=== PATIENT | female | born 2000 | race African-American/Black ===

== ENCOUNTER 2023-08-29 11:18 | Emergency (ER) | payer OTHER ==
--- NOTE | 2023-08-29 12:43 | XRAY Report ---
PROCEDURE: Chest 1 View X-Ray INDICATIONS: productive cough TECHNIQUE: One view of the chest was acquired. COMPARISON: None. FINDINGS: Surgical changes and devices: None. Lungs and pleura: No pleural effusions or pneumothorax. Lungs are clear. Mediastinum: Mediastinal contours appear normal. Heart size is normal. Bones and chest wall: No suspicious bony lesions. Overlying soft tissues appear unremarkable. IMPRESSION: No acute cardiopulmonary process. Reviewed by: David Smith MD on 08/29/2023 12:42 PM [facility] Approved by: David Smith MD on 08/29/2023 12:42 PM [facility] Station ID: [id number]
--- NOTE | 2023-08-29 12:51 | ED Physician Documentation ---
PD HPI URI - Stated complaint Stated Complaint: SOA,GUIDO,COUGH - Chief complaint Chief Complaint: Resp - History obtained from History obtained from: Patient - Additional information Additional information: Patient is a 22-year-old female presenting for evaluation of headache, body aches, cough for the past day. She states that at times the cough is productive of white phlegm and this morning she saw some streaks of blood in it. No chest pain or shortness of air. Has not tried anything for her symptoms. Denies any known sick contacts. 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 Reports some associated nausea but no vomiting or diarrhea. No recent travel. Does not take any medications on a chronic basis. Review of Systems Constitutional: denies: Fever Cardiac: denies: Chest pain / pressure Respiratory: reports: Cough. denies: Dyspnea GI: reports: Nausea. denies: Abdominal Pain PD PAST MEDICAL HISTORY - Past Medical History Past Medical History: No - Past Surgical History Past Surgical History: Yes - Present Medications Home Medications: Ambulatory Orders Medication Instructions Recorded Confirmed Ondansetron Odt [Zofran] 4 mg TL Q6H PRN #10 tablet 08/29/23 - Allergies Allergies/Adverse Reactions: Allergies Allergy/AdvReac Type Severity Reaction Status Date / Time No Known Drug Allergies Allergy Verified 08/29/23 11:36 - Social History Does the pt smoke?: No Smoking Status: Never smoker PD ED PE NORMAL - General General: Alert and oriented X 3, No acute distress, Well developed/nourished - HEENT HEENT: Atraumatic, Moist mucous membranes, Pharynx benign - Neck Neck: Supple, no meningeal sign - Cardiac Cardiac: RRR - Respiratory Respiratory: No respiratory distress, Clear bilaterally - Derm Derm: Warm and dry - Neuro Neuro: Normal speech Results - Vitals Vitals: Vital Signs - 24 hr 08/29/23 08/29/23 11:32 13:05 Temperature 37 C 37.1 C Heart Rate 62 64 Respiratory 18 18 Rate Blood Pressure 122/88 H 140/89 H O2 Saturation 100 98 - Labs Labs: Laboratory Tests 08/29/23 11:40 Nasal Adenovirus (PCR) NOT DETECTED Nasal B. parapertussis DNA (PCR) NOT DETECTED Nasal Coronavir 229E PCR NOT DETECTED Nasal Coronavir HKU1 PCR NOT DETECTED Nasal Coronavir NL63 PCR NOT DETECTED Nasal Coronavir OC43 PCR NOT DETECTED Nasal Enterovir/Rhinovir PCR NOT DETECTED Nasal Influenza B PCR NOT DETECTED Nasal Influenza A PCR NOT DETECTED Nasal Parainfluen 1 PCR NOT DETECTED Nasal Parainfluen 2 PCR NOT DETECTED Nasal Parainfluen 3 PCR NOT DETECTED Nasal Parainfluen 4 PCR NOT DETECTED Nasal RSV (PCR) NOT DETECTED Nasal B.pertussis DNA PCR NOT DETECTED Nasal C.pneumoniae (PCR) NOT DETECTED Joe Human Metapneumo PCR NOT DETECTED Nasal M.pneumoniae (PCR) NOT DETECTED Nasal SARS-CoV-2 (PCR) DETECTED A PD Medical Decision Making - ED course ED course: Patient with URI symptoms for the past day. Vital signs are stable. Reported some blood streaking in her phlegm at this morning so a chest x-ray was obtained which I reviewed I see no consolidation or mass. Respiratory swab was obtained and symptoms suggest a viral illness. Patient counseled on supportive care. After discharge her swab returned positive for COVID and she was notified by nursing staff. Patient advised on concerning symptoms to return for. Departure - Departure Disposition: 01 Home, Self Care Clinical Impression: URI (upper respiratory infection) Condition: Stable Instructions: ED Viral Syndrome Prescriptions: Ondansetron Odt [Zofran] 4 mg TL Q6H PRN #10 tablet PRN Reason: Nausea / Vomiting Comments: Your chest x-ray does not show pneumonia or a mass. Your symptoms are likely related to a viral process. I have sent a prescription for an antinausea medication to [facility] in [place]. Your respiratory panel is pending. This will check for COVID, influenza, RSV and a number of other common cold viruses. We will notify you if it is positive for COVID. Otherwise you can check the patient portal for your results. You should quarantine from others until you know your COVID result. Please continue with acetaminophen or ibuprofen as needed for fevers and body aches, plenty of fluids/hydration and rest. Return to the ER with any worsening symptoms such as difficulty breathing or vomiting. Forms: PCP List Discharge Date/Time: 08/29/23 13:05
[2023-08-29 13:10] VITALS: BP 140/89; O2SAT 98
[2023-08-29 13:20] LABS: B. PARAPERTUSSIS- RESP PCR PAN NOT DETECTED; B. PERTUSSIS- RESP PCR PANEL NOT DETECTED; C. PNEUMONIAE- RESP PCR PANEL NOT DETECTED; CORONAVIRUS 229E-RESP PCR NOT DETECTED; CORONAVIRUS HKU1-RESP PCR NOT DETECTED; CORONAVIRUS NL63-RESP PCR NOT DETECTED; CORONAVIRUS OC43-RESP PCR NOT DETECTED; HUMAN METAPNEUMOVIRUS NOT DETECTED; INFLUENZA A- RESP PCR PANEL NOT DETECTED; INFLUENZA B - RESP PCR PANEL NOT DETECTED; M. PNEUMONIAE- RESP PCR PANEL NOT DETECTED; PARAINFLUENZA VIRUS 1 NOT DETECTED; PARAINFLUENZA VIRUS 2 NOT DETECTED; PARAINFLUENZA VIRUS 3 NOT DETECTED; PARAINFLUENZA VIRUS 4 NOT DETECTED; RHINOVIRUS/ENTEROVIRUS NOT DETECTED; RSV- RESP PCR PANEL NOT DETECTED
[2023-08-29 13:23] LABS: SARS-CoV-2 -RESP PCR PANEL DETECTED
== END 2023-08-29 13:05 | disposition home or self-care (01) ==
LOC: ED 11:18
DX: U07.1 COVID-19 (principal)
CPT/HCPCS: 87633; 99283; 99284